=== PATIENT | female | born 1970 | race Caucasian/White ===

== ENCOUNTER → 2018-11-25 | Outpatient (CLI) | payer BC ==
[~2018-11-25] MED LIST: LEVOTHYROXIN0.075 MG PO; NORCO 325 MG-51 TAB PO; PREMPHASE PO; PROZAC20 MG PO
== END | disposition home or self-care (01) ==
LOC: MAMMO 08:02
DX: Z12.31 Encounter for screening mammogram for malignant neoplasm of breast (principal)

== ENCOUNTER 2021-08-06 13:47 | Emergency (ER) | payer OTHER ==
[~2021-08-06] VITALS: Wt 117.9 kg
[2021-08-06 13:52] VITALS: BP 128/76
[2021-08-06] MEDS ORDERED: HYDROCODONE-AC1 EACH PO (18:12)
== END 2021-08-06 18:17 | disposition home or self-care (01) ==
LOC: ED 13:47
DX: S42.424A Nondisplaced comminuted supracondylar fracture without intercondylar fracture of right humerus, initial encounter for closed fracture (principal); Z79.899 Other long term (current) drug therapy; W18.39XA Other fall on same level, initial encounter; Y93.89 Activity, other specified; Y92.89 Other specified places as the place of occurrence of the external cause; Y99.8 Other external cause status

== ENCOUNTER → 2021-08-10 | Outpatient (CLI) | payer OTHER ==
[~2021-08-10] MED LIST changes: +HYDROCODONE-AC1 EACH PO
== END | disposition home or self-care (01) ==
LOC: CT 15:00
PROVIDERS: ATTEND Orthopaedic Surgery
DX: S42.291A Other displaced fracture of upper end of right humerus, initial encounter for closed fracture (principal); X58.XXXA Exposure to other specified factors, initial encounter; Y93.89 Activity, other specified; Y92.89 Other specified places as the place of occurrence of the external cause; Y99.8 Other external cause status

== ENCOUNTER → 2022-01-31 | Day surgery (SDC) | payer OTHER ==
[~2022-01-31] VITALS: Ht 160 cm; Wt 117.9 kg
[~2022-01-31] MED LIST changes: +METFORMIN HYDR500 MG PO; +OZEMPIC0.25 MG/01 SQ; +VITAMIN D325 MCG PO; +ZESTRIL,PRINIVIL5 MG PO
[2022-01-31 07:38] VITALS: BP 137/74
[2022-01-31 08:12] VITALS: BP 123/74
[2022-01-31 08:27] VITALS: BP 119/71
[2022-01-31 08:42] VITALS: BP 153/87
[2022-01-31 10:17] VITALS: BP 123/74
== END | disposition home or self-care (01) ==
LOC: SDC 01-21 08:00
PROVIDERS: ATTEND Surgery
DX: Z12.11 Encounter for screening for malignant neoplasm of colon (principal); K57.30 Diverticulosis of large intestine without perforation or abscess without bleeding; I10 Essential (primary) hypertension; E11.9 Type 2 diabetes mellitus without complications; F32.9 Major depressive disorder, single episode, unspecified; E03.9 Hypothyroidism, unspecified; Z79.899 Other long term (current) drug therapy